=== PATIENT | male | born 1940 | race Caucasian/White ===

== ENCOUNTER 2020-04-22 12:00 | Inpatient (IN) | payer MEDICARE ==
[~2020-04-22] VITALS: Ht 180.3 cm; Wt 113.8 kg
[~2020-04-22 12:00] MED LIST: HYDR25TA PO; LISI-617 PO; PANT40TA54 PO; SIMV-46 PO
[2020-04-22 15:17] LABS: BASOPHILS % (AUTO) 0.5 % (0.0-5.0); EOSINOPHILS % (AUTO) 1.5 % (0.0-8.0); HEMATOCRIT 47.5 % (42-54); LYMPHOCYTES % (AUTO) 18.3 % (21.0-51.0); MEAN CORPUSCULAR HGB CONC 34.5 g/dL (32.0-36.0); MEAN CORPUSCULAR VOLUME 92.8 fL (79-99); MONOCYTES % (AUTO) 6.8 % (3.0-13.0); NEUTROPHILS % (AUTO) 72.5 % (40.0-77.0); PLATELET COUNT (AUTO) 256 K/uL (130-400); RED BLOOD CELL COUNT(AUTO) 5.12 MIL/uL (4.50-6.20); RED CELL DISTRIBUTION WIDTH 12.7 % (11.0-15.5); WHITE BLOOD COUNT (AUTO) 9.9 K/uL (4.8-10.8)
[2020-04-22 15:43] LABS: INR 0.98 (0.85-1.15); PROTHROMBIN TIME 10.5 SEC (9.6-11.6)
[2020-04-22 15:44] LABS: PARTIAL THROMBOPLASTIN TIME 26.8 SEC (26.3-35.5)
[2020-04-25] MEDS ORDERED: LEVO25TA54 PO (11:55)
[2020-04-26] VITALS (28 sets, daily range): BP systolic 116–156; BP diastolic 62–84
[2020-04-26] MEDS ORDERED: DURAMORPH PF1 MG/ML 10ML AMP IV ONE (07:33)
[2020-04-26] MEDS ORDERED: VANCOMYCIN HCL 1 GM VIAL ONE ×2 (07:33→07:37)
[2020-04-26] MEDS ORDERED: THROMBIN-JMI 5000 UNIT/VIAL TP ONE ×2 (07:33→09:20)
[2020-04-26] MEDS ORDERED: BUPIVACAINE/PF 0.25% 50ML VIAL IJ ONE (07:33)
[2020-04-26] MEDS ORDERED: LACTATED RINGERS 1000ML 1,000 ML IV ONE (07:41)
[2020-04-26] MEDS ORDERED: TOBRAMYCIN SULFATE 40MG/1ML VIAL ONE (07:41)
[2020-04-26] MEDS: SODIUM CHLORIDE 0.9% 1000ML 1,000 ML IV SCH ×2 (08:00→09:51)
[2020-04-26] MEDS: CEFAZOLIN SODIUM 1 GM VIAL IVP ONE ×2 (08:09→09:21)
[2020-04-26] MEDS ORDERED: DEXAMETHASONE SOD PHOSPHATE 10MG/ML 1ML VIAL ONE (08:13)
[2020-04-26] MEDS ORDERED: GLYCOPYRROLATE 1 MG/5 ML SYRINGE ONE (08:14)
[2020-04-26] MEDS ORDERED: NEOSTIGMINE 5MG/5ML SYR IV ONE (08:14)
[2020-04-26] MEDS ORDERED: FENTANYL CITRATE PF 50 MCG/1 ML 2ML VIAL ONE ×2 (08:14→09:26)
[2020-04-26] MEDS ORDERED: MIDAZOLAM HCL 1 MG/ML 2ML VIAL ONE (08:14)
[2020-04-26] MEDS ORDERED: SUCCINYLCHOLINE CHLORIDE 20 MG/ML 10 ML VIAL ONE (08:14)
[2020-04-26] MEDS ORDERED: PROPOFOL 10 MG/ML 20ML VIAL IV ONE (08:14)
[2020-04-26] MEDS ORDERED: LIDOCAINE PF 2% 5ML ABBOJECT ONE (08:14)
[2020-04-26] MEDS ORDERED: ONDANSETRON HCL 4 MG/2 ML VIAL ONE (08:14)
[2020-04-26] MEDS ORDERED: EPHEDRINE SULFATE 50 MG/ML AMPULE ONE (09:24)
[2020-04-26] MEDS ORDERED: TRANEXAMIC ACID 1000MG/10ML ONE (09:48)
[2020-04-26] MEDS ORDERED: KETOROLAC TROMETHAMINE 30MG/ML ONE (10:33)
[2020-04-26] MEDS ORDERED: MEPERIDINE-PF 25 MG/ML SYG ONE ×2 (11:41→12:03)
[2020-04-26] MEDS ORDERED: NALOXONE HCL 0.4 MG/1 ML ML IVP PRN (15:00)
[2020-04-26] MEDS ORDERED: MEPERIDINE-PF 75 MG/ML SYG IM PRN (15:00)
[2020-04-26] MEDS ORDERED: ACETAMINOPHEN-CODEINE 300/30MG TAB PO PRN (15:00)
[2020-04-26] MEDS: CEFAZOLIN SODIUM 1 GM VIAL IVP SCH (16:10)
[2020-04-27] MEDS: CEFAZOLIN SODIUM 1 GM VIAL IVP SCH ×2 (00:05→09:05)
[2020-04-27] MEDS: ACETAMINOPHEN-CODEINE 300/30MG TAB PO PRN ×2 (02:09→12:38)
[2020-04-27 04:00] VITALS: BP 132/68
[2020-04-27] MEDS: LEVOTHYROXINE 25 MCG TABLET PO SCH (05:55)
[2020-04-27] MEDS: LISINOPRIL 5 MG TABLET PO SCH (09:05)
[2020-04-27] MEDS: SIMVASTATIN 20 MG TABLET PO SCH (09:05)
[2020-04-27] MEDS: PANTOPRAZOLE SODIUM 40 MG TABLET.DR PO SCH (09:05)
[2020-04-27] MEDS: HYDROCHLOROTHIAZIDE 25 MG TABLET PO SCH (09:05)
[2020-04-27 09:15] VITALS: BP 154/82
[2020-04-27 12:32] VITALS: BP 139/76
[2020-04-27 17:58] VITALS: BP 127/71
[2020-04-27 19:25] VITALS: BP 139/78
[2020-04-28 00:01] VITALS: BP 110/64
[2020-04-28 03:59] VITALS: BP 140/66
[2020-04-28] MEDS: LEVOTHYROXINE 25 MCG TABLET PO SCH (05:54)
[2020-04-28] MEDS: SIMVASTATIN 20 MG TABLET PO SCH (09:00)
[2020-04-28] MEDS: LISINOPRIL 5 MG TABLET PO SCH (10:23)
[2020-04-28] MEDS: HYDROCHLOROTHIAZIDE 25 MG TABLET PO SCH (10:24)
[2020-04-28] MEDS: PANTOPRAZOLE SODIUM 40 MG TABLET.DR PO SCH (10:28)
[2020-04-28 12:00] VITALS: BP 128/77
[2020-04-28 13:09] VITALS: BP 130/73
[2020-04-28] MEDS: ACETAMINOPHEN-CODEINE 300/30MG TAB PO PRN (13:21)
[2020-04-28 16:00] VITALS: BP 113/63
== END 2020-04-28 18:30 | disposition home health service (06) | DRG 460 ==
LOC: EDSTATUS 12:00 → DAHIP 04-26 06:44 → 3DH 04-26 13:47
PROVIDERS: ADMIT Neurological Surgery; ATTEND Neurological Surgery
PROC: 4A11X4G Monitoring of Peripheral Nervous Electrical Activity, Intraoperative, External Approach (ICD-10-PCS; 2020-04-26)
PROC: 0SG1071 Fusion of 2 or more Lumbar Vertebral Joints with Autologous Tissue Substitute, Posterior Approach, Posterior Column, Open Approach (ICD-10-PCS; principal; 2020-04-26 08:42)
DX: M48.062 Spinal stenosis, lumbar region with neurogenic claudication (principal); G95.29 Other cord compression; M51.36 Other intervertebral disc degeneration, lumbar region; Z20.828 Contact with and (suspected) exposure to other viral communicable diseases; M47.816 Spondylosis without myelopathy or radiculopathy, lumbar region; E78.00 Pure hypercholesterolemia, unspecified; I10 Essential (primary) hypertension; Z96.653 Presence of artificial knee joint, bilateral; M96.1 Postlaminectomy syndrome, not elsewhere classified; G89.4 Chronic pain syndrome; M25.78 Osteophyte, vertebrae; Z90.49 Acquired absence of other specified parts of digestive tract; Z98.1 Arthrodesis status
CPT/HCPCS: 36415; 72100; 85025; 85610; 85730; 87426; G0378; J0330; J0690; J1040; J1100; J1885; J2001; J2175; J2250; J2274; J2405; J2704; J2710; J3010; J3260; J3370; J3490; J7120; U0003